=== PATIENT | male | born 1935 | race Caucasian/White ===

== ENCOUNTER 2020-09-26 10:04 | Outpatient (CLI) | payer MEDICARE, BC ==
[2020-09-26 10:43] LABS: CREATININE 0.84 mg/dL (0.7-1.3)
[2020-09-26] MEDS ORDERED: VISIPAQUE 320 MG/ML, 150ML BOTTLE ONE (11:52)
== END 2020-09-26 23:59 | disposition home or self-care (01) ==
LOC: RAD 10:04
PROVIDERS: ATTEND Internal Medicine Cardiovascular Disease
DX: Z01.810 Encounter for preprocedural cardiovascular examination (principal); I35.8 Other nonrheumatic aortic valve disorders; I65.23 Occlusion and stenosis of bilateral carotid arteries; I70.0 Atherosclerosis of aorta; I10 Essential (primary) hypertension; J18.9 Pneumonia, unspecified organism; J98.11 Atelectasis; I25.10 Atherosclerotic heart disease of native coronary artery without angina pectoris
CPT/HCPCS: 36415; 71275; 74174; 82565; 93880; Q9967

== ENCOUNTER 2020-10-09 09:01 | Inpatient (IN) | payer MEDICARE, BC ==
[~2020-10-09] VITALS: Ht 182.9 cm; Wt 96.3 kg
[2020-10-09] MEDS ORDERED: ATOR40TA78 PO (09:51)
[2020-10-09] MEDS ORDERED: QUIN10TA15 PO (09:51)
[2020-10-09] MEDS ORDERED: OMEP-110 PO (09:51)
[2020-10-09] MEDS ORDERED: FLUT9.9S INH (09:57)
[2020-10-09] MEDS ORDERED: SILD100T PO (09:57)
[2020-10-09] MEDS ORDERED: FINA5TAB4 PO (09:57)
[2020-10-09] MEDS ORDERED: POTA10TA6 PO (09:57)
[2020-10-09] MEDS ORDERED: BUDE10.7 INH (09:57)
[2020-10-09] MEDS ORDERED: FURO80TA3 PO (09:57)
[2020-10-09] MEDS ORDERED: ALBU8.5H8 INH (09:57)
[2020-10-09] MEDS ORDERED: SODIUM CHLORIDE 0.9% 1,000 ML IV ONE (10:00)
[2020-10-09] MEDS ORDERED: ONDANSETRON 2MG/ML, 2ML IV PRN (10:00)
[2020-10-09] MEDS ORDERED: ASPI81TA45 PO (10:02)
[2020-10-09] MEDS ORDERED: IBUP-1222 PO (10:02)
[2020-10-09] MEDS ORDERED: Areds2 PO (10:02)
[2020-10-09 10:05] VITALS: BP 155/80
[2020-10-09 10:14] LABS: BASOPHILS % (AUTO) 2 % (0-1); EOSINOPHILS % (AUTO) 2 % (1-7); LYMPHOCYTES % (AUTO) 21 % (22-44); MEAN CORPUSCULAR HEMOGLOBIN 27.8 pg (27.5-34.5); MEAN CORPUSCULAR HGB CONC 32.5 g/dL (33.2-36.2); MONOCYTES % (AUTO) 13 % (2-9); NEUTROPHILS % (AUTO) 62 % (42-75); PLATELET COUNT 244 x10^3/uL (130-400); RED CELL DISTRIBUTION WIDTH 16.3 % (9.4-14.8)
[2020-10-09 10:27] LABS: INTERNATIONAL NORMALIZED RATIO 1.02 (0.93-1.1); PROTHROMBIN TIME 10.9 Seconds (9.6-11.5)
[2020-10-09 10:28] LABS: ALBUMIN 3.1 g/dL (3.4-5.0); ANION GAP 7 mmol/L (5-15); CALCIUM 8.4 mg/dL (8.5-10.1); CHLORIDE 107 mmol/L (98-107)
[2020-10-09 10:31] LABS: ALANINE AMINOTRANSFERASE 14 U/L (12-78); ALKALINE PHOSPHATASE 74 U/L (45-117); BILIRUBIN,TOTAL 0.8 mg/dL (0.2-1.0); CREATININE 0.86 mg/dL (0.7-1.3); TOTAL PROTEIN 6.9 g/dL (6.4-8.2)
[2020-10-09] MEDS ORDERED: FENTANYL PF 250 MCG/5ML ONE (10:51)
[2020-10-09] MEDS ORDERED: VERAPAMIL 2.5 MG/ML, 2ML ONE (10:51)
[2020-10-09] MEDS ORDERED: PROTAMINE SULFATE 10 MG/ML, 5ML ONE (10:51)
[2020-10-09] MEDS ORDERED: SUCCINYLCHOLINE 20 MG/ML, 10ML ONE (10:52)
[2020-10-09] MEDS ORDERED: PROPOFOL 10 MG/ML, 20ML ONE (10:52)
[2020-10-09] MEDS ORDERED: CEFAZOLIN 1,000 MG ONE (10:52)
[2020-10-09] MEDS ORDERED: ROCURONIUM 10MG/ML,5ML ONE (10:52)
[2020-10-09] MEDS ORDERED: LABETALOL 20 MG/4 ML IVPush PRN (12:00)
[2020-10-09] MEDS ORDERED: HYDROcodone/APAP 5/325 TABLET PO PRN (12:00)
[2020-10-09] MEDS ORDERED: ACETAMINOPHEN 325 MG TABLET PO PRN (12:00)
[2020-10-09] MEDS ORDERED: hydrALAzine 20 MG/ML, 1ML IVPush PRN (12:00)
[2020-10-09 13:58] VITALS: BP 130/79
[2020-10-09] MEDS: OMEPRAZOLE 20 MG CAPSULE.DR PO SCH (14:22)
[2020-10-09] MEDS: FINASTERIDE 5 MG TABLET PO SCH (14:58)
[2020-10-09] MEDS: ASPIRIN 81 MG TABLET EC PO SCH (14:58)
[2020-10-09] MEDS: POTASSIUM CHLORIDE 10 MEQ TABLET.ER PO SCH (14:58)
[2020-10-09 19:07] VITALS: BP 117/79
[2020-10-09] MEDS ORDERED: ALBUTEROL SULFATE 2.5 MG/3 ML ONE (19:33)
[2020-10-09] MEDS: GLYCOPYR HOMEINH SCH (20:35)
[2020-10-09] MEDS: BUDESONIDE HOMEINH SCH (20:35)
[2020-10-09] MEDS: FORMOTEROL HOMEINH SCH (20:35)
[2020-10-09] MEDS ORDERED: ATORVASTATIN 40 MG TABLET PO SCH (21:00)
[2020-10-09] MEDS ORDERED: ALBUTEROL SULFATE 2.5 MG/3 ML NPPB SCH (21:00)
[2020-10-09] MEDS ORDERED: BUDESONIDE 0.5 MG/2 ML INHA NPPB SCH (21:00)
[2020-10-10 02:20] VITALS: BP 145/73
[2020-10-10 05:33] LABS: BASOPHILS % (AUTO) 0 % (0-1); EOSINOPHILS % (AUTO) 0 % (1-7); LYMPHOCYTES % (AUTO) 10 % (22-44); MEAN CORPUSCULAR HEMOGLOBIN 28.3 pg (27.5-34.5); MEAN PLATELET VOLUME 9.3 fL (7.4-10.4); MONOCYTES % (AUTO) 9 % (2-9); NEUTROPHILS % (AUTO) 81 % (42-75); PLATELET COUNT 204 x10^3/uL (130-400); RED CELL DISTRIBUTION WIDTH 16.7 % (9.4-14.8)
[2020-10-10 05:44] LABS: ANION GAP 5 mmol/L (5-15); CHLORIDE 106 mmol/L (98-107)
[2020-10-10 05:47] LABS: CALCIUM 8.3 mg/dL (8.5-10.1); CREATININE 0.82 mg/dL (0.7-1.3)
[2020-10-10] MEDS: OMEPRAZOLE 20 MG CAPSULE.DR PO SCH (06:02)
[2020-10-10 07:48] VITALS: BP 147/71
[2020-10-10] MEDS: ASPIRIN 81 MG TABLET EC PO SCH (08:17)
[2020-10-10] MEDS: BUDESONIDE HOMEINH SCH (08:17)
[2020-10-10] MEDS: GLYCOPYR HOMEINH SCH (08:17)
[2020-10-10] MEDS: FORMOTEROL HOMEINH SCH (08:17)
[2020-10-10] MEDS: FINASTERIDE 5 MG TABLET PO SCH (08:18)
[2020-10-10] MEDS: POTASSIUM CHLORIDE 10 MEQ TABLET.ER PO SCH (08:18)
[2020-10-10] MEDS ORDERED: IBUPROFEN 600 MG TABLET PO SCH (09:00)
[2020-10-10] MEDS ORDERED: QUINAPRIL 20MG TABLET PO SCH (09:00)
[2020-10-10] MEDS ORDERED: ALBUTEROL HFA 90 MCG/SPRAY INH SCH (09:00)
[2020-10-10] MEDS ORDERED: FUROSEMIDE 80 MG TABLET PO SCH (09:00)
[2020-10-10] MEDS ORDERED: FLUTICASONE NASAL SPRAY 16GM NAS SCH (09:00)
[2020-10-10 15:20] VITALS: BP 126/71
== END 2020-10-10 16:20 | disposition home or self-care (01) | DRG 267 ==
LOC: ORIP 09:01 → 5SO 12:53 → DCLOUNGE 10-10 16:07
PROVIDERS: ADMIT Internal Medicine Cardiovascular Disease; ATTEND Internal Medicine Cardiovascular Disease
PROC: B24BZZ4 Ultrasonography of Heart with Aorta, Transesophageal (ICD-10-PCS; 2020-10-09)
PROC: 5A1213Z Performance of Cardiac Pacing, Intermittent (ICD-10-PCS; 2020-10-09)
PROC: B3101ZZ Fluoroscopy of Thoracic Aorta using Low Osmolar Contrast (ICD-10-PCS; 2020-10-09)
PROC: 02RF38Z Replacement of Aortic Valve with Zooplastic Tissue, Percutaneous Approach (ICD-10-PCS; principal; 2020-10-09 12:00)
DX: I35.0 Nonrheumatic aortic (valve) stenosis (principal); I50.32 Chronic diastolic (congestive) heart failure; Z00.6 Encounter for examination for normal comparison and control in clinical research program; Z20.822 Contact with and (suspected) exposure to COVID-19; I11.0 Hypertensive heart disease with heart failure; E78.5 Hyperlipidemia, unspecified; J44.9 Chronic obstructive pulmonary disease, unspecified; D64.9 Anemia, unspecified; I44.4 Left anterior fascicular block; N52.9 Male erectile dysfunction, unspecified; E88.09 Other disorders of plasma-protein metabolism, not elsewhere classified; K21.9 Gastro-esophageal reflux disease without esophagitis; N40.0 Benign prostatic hyperplasia without lower urinary tract symptoms; Z99.81 Dependence on supplemental oxygen; Z88.5 Allergy status to narcotic agent; Z79.899 Other long term (current) drug therapy
CPT/HCPCS: 33361; 36415; 76937; 80048; 80053; 85025; 85347; 85610; 86850; 86900; 86923; 87635; 93005; 93306; 93312; 93321; 93325; 93355; C1760; C1769; C1894; G0378; J0690; J2704; J2720; J3010; J0330; Q9967

== ENCOUNTER 2020-12-04 12:43 | Outpatient (CLI) | payer MEDICARE, BC ==
[~2020-12-04 12:43] MED LIST: ALBU8.5H8 INH; ASPI81TA45 PO; ATOR40TA78 PO; Areds2 PO; BUDE10.7 INH; FINA5TAB4 PO; FLUT9.9S INH; FURO80TA3 PO; IBUP-1222 PO; OMEP-110 PO; POTA10TA6 PO; QUIN10TA15 PO; SILD100T PO
== END 2020-12-04 23:59 | disposition home or self-care (01) ==
LOC: CVU 12:43
PROVIDERS: ATTEND Internal Medicine Cardiovascular Disease
DX: Z01.818 Encounter for other preprocedural examination (principal); I05.1 Rheumatic mitral insufficiency; R06.02 Shortness of breath; I65.29 Occlusion and stenosis of unspecified carotid artery; I11.9 Hypertensive heart disease without heart failure
CPT/HCPCS: 93306; 93356